=== PATIENT | female | born 1980 | race Caucasian/White ===

== ENCOUNTER 2020-06-23 02:02 | Inpatient (IN) | payer MEDICAID, SELFPAY ==
[~2020-06-23] VITALS: Ht 157.5 cm; Wt 54.4 kg
[2020-06-23 02:08] VITALS: BP_SYST 133
[2020-06-23] MEDS ORDERED: ONDANSETRON HCL 4 MG/2 ML VIAL IVP ONE (02:30)
[2020-06-23] MEDS ORDERED: MORPHINE 4 MG/ML INJ. SYRINGE IVP ONE (02:30)
[2020-06-23] MEDS ORDERED: NACL 0.9% 1,000 ML IV ONE (02:30)
[2020-06-23] MEDS ORDERED: DIPHENHYDRAMINE INJ 50 MG/ML VIAL IVP ONE (02:30)
[2020-06-23 02:55] LABS: BASOPHILS % (AUTO) 0.4 % (0.0-2.0); EOSINOPHILS # (AUTO) 0.2 K/uL (0.0-0.4); EOSINOPHILS % (AUTO) 2.9 % (0.0-4.0); HEMATOCRIT 34.8 % (36-48); HEMOGLOBIN 11.5 g/dL (12.0-16.0); LYMPHOCYTES # (AUTO) 1.7 K/uL (1.0-5.5); LYMPHOCYTES % (AUTO) 20.3 % (20.5-51.5); MEAN CORPUSCULAR HEMOGLOBIN 30 pg (27-31); MEAN CORPUSCULAR HGB CONC 33 % (32-36); MEAN CORPUSCULAR VOLUME 90 fL (79.0-98.0); MONOCYTES # (AUTO) 0.5 K/uL (0.0-1.0); MONOCYTES % (AUTO) 6.3 % (1.7-9.3); NEUTROPHILS # (AUTO) 5.9 K/uL (1.8-7.7); NEUTROPHILS % (AUTO) 70.1 % (40.0-70.0); PLATELET COUNT (AUTO) 276 K/uL (130-430); RED BLOOD CELL COUNT(AUTO) 3.87 MIL/uL (4.2-6.2); RED CELL DISTRIBUTION WIDTH 13.1 % (9.0-15.0); WHITE BLOOD COUNT (AUTO) 8.4 K/uL (4.8-10.8)
[2020-06-23 02:58] LABS: BILIRUBIN,URINE NEGATIVE (NEGATIVE); BLOOD, URINE 3+ (NEGATIVE); CLARITY/URINE CLOUDY (CLEAR); COLOR,URINE YELLOW (YELLOW); GLUCOSE,URINE NEGATIVE (NEGATIVE); KETONES,URINE NEGATIVE (NEGATIVE); LEUKOCYTE ESTERASE ,URINE 2+ (NEGATIVE); NITRITE, URINE POSITIVE (NEGATIVE); PH,URINE 6.5 (5.0-8.0); PROTEIN URINE 2+ (NEGATIVE); UROBILINOGEN,URINE 0.2 (0.2-1.0)
[2020-06-23 03:04] LABS: CALCIUM 8.4 mg/dL (8.4-11.0); CREATININE 0.84 mg/dL (0.55-1.30)
[2020-06-23 03:05] LABS: BACTERIA,URINE MANY /HPF (None Seen); RBC,URINE >100 /HPF (0-3); WBC,URINE >100 /HPF (0-3)
[2020-06-23 03:10] LABS: ALBUMIN 3.2 g/dL (3.4-4.8); TOTAL BILIRUBIN 0.2 mg/dL (0.0-1.0)
[2020-06-23] MEDS ORDERED: cefTRIAXone 1 GM IVPB PREMIX 50 ML IV ONE (03:45)
[2020-06-23] MEDS ORDERED: cefTRIAXone 1 GM VIAL ONE (04:01)
[2020-06-23] MEDS ORDERED: ACETAMINOPHEN 325 MG TABLET PO PRN ×2 (05:00→11:45)
[2020-06-23] MEDS ORDERED: MORPHINE 2 MG/ML INJ. SYRINGE IVP PRN (05:00)
[2020-06-23] MEDS: NACL 0.9% 1,000 ML IV SCH ×3 (05:25→21:14)
[2020-06-23] MEDS ORDERED: PIPERACILLIN/TAZOBACTAM 3.375 GM/VIAL (ZOSYN) IV ONE (05:27)
[2020-06-23] MEDS: PIPERACILLIN/TAZO 3.375 GM in NS 50 ML IV SCH ×4 (05:28→23:53)
[2020-06-23 06:35] VITALS: BP_SYST 112
[2020-06-23 08:02] VITALS: BP_SYST 111
[2020-06-23] MEDS: MORPHINE 4 MG/ML INJ. SYRINGE IVP PRN ×3 (08:02→22:06)
[2020-06-23] MEDS ORDERED: HYDR-4272 PO (09:49)
[2020-06-23] MEDS: ONDANSETRON HCL 4 MG/2 ML VIAL IVP PRN ×2 (10:43→23:53)
[2020-06-23] MEDS ORDERED: BISACODYL 5 MG TABLET.DR (DULCOLAX) PO ONE (11:00)
[2020-06-23] MEDS: DIPHENHYDRAMINE INJ 50 MG/ML VIAL IVP PRN (11:13)
[2020-06-23 11:25] VITALS: BP_SYST 114
[2020-06-23] MEDS ORDERED: HYDROcodone/ACETAMIN 5-325 MG TAB (NORCO/ VICODIN) PO PRN (11:45)
[2020-06-23] MEDS ORDERED: NALOXONE HCL 0.4 MG/ML AMP (NARCAN) IVP PRN (11:45)
[2020-06-23] MEDS ORDERED: MILK OF MAGNESIA 30 ML UDC PO PRN (12:00)
[2020-06-23] MEDS ORDERED: PANTOPRAZOLE SODIUM 40 MG TAB PO ONE (12:00)
[2020-06-23 15:27] VITALS: BP_SYST 118
[2020-06-23 20:00] VITALS: BP_SYST 113; BP_SYST 124
[2020-06-23] MEDS: DOCUSATE SODIUM 250 MG CAPSULE PO SCH (21:08)
[2020-06-24] VITALS: BP_SYST 127
[2020-06-24] MEDS: MORPHINE 4 MG/ML INJ. SYRINGE IVP PRN ×4 (04:53→22:03)
[2020-06-24] MEDS: NACL 0.9% 1,000 ML IV SCH ×2 (04:59→21:00)
[2020-06-24] MEDS: PIPERACILLIN/TAZO 3.375 GM in NS 50 ML IV SCH ×3 (05:00→17:28)
[2020-06-24 06:55] LABS: BASOPHILS % (AUTO) 0.4 % (0.0-2.0); EOSINOPHILS # (AUTO) 0.2 K/uL (0.0-0.4); EOSINOPHILS % (AUTO) 2.5 % (0.0-4.0); HEMATOCRIT 34.3 % (36-48); HEMOGLOBIN 11.2 g/dL (12.0-16.0); LYMPHOCYTES # (AUTO) 1.1 K/uL (1.0-5.5); LYMPHOCYTES % (AUTO) 15.4 % (20.5-51.5); MEAN CORPUSCULAR HEMOGLOBIN 30 pg (27-31); MEAN CORPUSCULAR HGB CONC 33 % (32-36); MEAN CORPUSCULAR VOLUME 91 fL (79.0-98.0); MONOCYTES # (AUTO) 0.3 K/uL (0.0-1.0); MONOCYTES % (AUTO) 4.7 % (1.7-9.3); NEUTROPHILS # (AUTO) 5.4 K/uL (1.8-7.7); PLATELET COUNT (AUTO) 212 K/uL (130-430); RED BLOOD CELL COUNT(AUTO) 3.78 MIL/uL (4.2-6.2); RED CELL DISTRIBUTION WIDTH 13.1 % (9.0-15.0)
[2020-06-24 07:23] LABS: PROTHROMBIN TIME 10.4 SECS (9.5-12.5)
[2020-06-24 07:46] LABS: CALCIUM 7.9 mg/dL (8.4-11.0); CREATININE 0.87 mg/dL (0.55-1.30)
[2020-06-24 07:54] LABS: TOTAL IRON BIND. CAPACITY 214 ug/dL (250-450)
[2020-06-24 08:05] VITALS: BP_SYST 121
[2020-06-24] MEDS ORDERED: BISACODYL 5 MG TABLET.DR (DULCOLAX) PO PRN (09:00)
[2020-06-24] MEDS: PANTOPRAZOLE SODIUM 40 MG TAB PO SCH (09:00)
[2020-06-24] MEDS: DOCUSATE SODIUM 250 MG CAPSULE PO SCH ×2 (09:00→21:59)
[2020-06-24] MEDS: ONDANSETRON HCL 4 MG/2 ML VIAL IVP PRN ×2 (10:57→22:00)
[2020-06-24 11:32] VITALS: BP_SYST 108
[2020-06-24 16:28] VITALS: BP_SYST 103
[2020-06-24] MEDS ORDERED: MORPHINE 4 MG/ML INJ. SYRINGE ONE (17:15)
[2020-06-24] MEDS ORDERED: ONDANSETRON HCL 4 MG/2 ML VIAL ONE ×2 (17:16→21:56)
[2020-06-24 19:00] VITALS: BP_SYST 113
[2020-06-25] VITALS: BP_SYST 110
[2020-06-25] MEDS: PIPERACILLIN/TAZO 3.375 GM in NS 50 ML IV SCH ×3 (00:27→11:25)
[2020-06-25] MEDS: NACL 0.9% 1,000 ML IV SCH ×3 (00:28→23:07)
[2020-06-25] MEDS: MORPHINE 4 MG/ML INJ. SYRINGE IVP PRN ×5 (02:14→20:37)
[2020-06-25] MEDS ORDERED: ONDANSETRON HCL 4 MG/2 ML VIAL ONE ×4 (02:20→15:16)
[2020-06-25] MEDS: ONDANSETRON HCL 4 MG/2 ML VIAL IVP PRN ×4 (02:21→15:19)
[2020-06-25 06:52] LABS: BASOPHILS % (AUTO) 0.5 % (0.0-2.0); EOSINOPHILS # (AUTO) 0.2 K/uL (0.0-0.4); EOSINOPHILS % (AUTO) 3.3 % (0.0-4.0); HEMATOCRIT 32.3 % (36-48); HEMOGLOBIN 10.8 g/dL (12.0-16.0); LYMPHOCYTES # (AUTO) 1.4 K/uL (1.0-5.5); LYMPHOCYTES % (AUTO) 23.1 % (20.5-51.5); MEAN CORPUSCULAR HEMOGLOBIN 30 pg (27-31); MEAN CORPUSCULAR HGB CONC 33 % (32-36); MEAN CORPUSCULAR VOLUME 90 fL (79.0-98.0); MONOCYTES # (AUTO) 0.4 K/uL (0.0-1.0); MONOCYTES % (AUTO) 6.9 % (1.7-9.3); NEUTROPHILS % (AUTO) 66.2 % (40.0-70.0); PLATELET COUNT (AUTO) 212 K/uL (130-430)
[2020-06-25 08:01] VITALS: BP_SYST 114
[2020-06-25] MEDS ORDERED: PANTOPRAZOLE SODIUM 40 MG TAB ONE (08:06)
[2020-06-25] MEDS: DOCUSATE SODIUM 250 MG CAPSULE PO SCH ×2 (08:07→20:42)
[2020-06-25] MEDS: PANTOPRAZOLE SODIUM 40 MG TAB PO SCH (08:07)
[2020-06-25 08:12] LABS: CALCIUM 7.9 mg/dL (8.4-11.0); CREATININE 0.7 mg/dL (0.55-1.30); POTASSIUM 4.1 mmol/L (3.5-5.1)
[2020-06-25 11:23] VITALS: BP_SYST 134
[2020-06-25 15:22] VITALS: BP_SYST 129
[2020-06-25] MEDS: DIPHENHYDRAMINE INJ 50 MG/ML VIAL IVP PRN (18:45)
[2020-06-25 20:44] VITALS: BP_SYST 148
[2020-06-25] MEDS: CEFTAZIDIME 1 GM in D5W 50 ML IV SCH (21:20)
[2020-06-25] MEDS: HYDROcodone/ACETAMIN 5-325 MG TAB (NORCO/ VICODIN) PO PRN (21:48)
[2020-06-26] MEDS: MORPHINE 4 MG/ML INJ. SYRINGE IVP PRN ×5 (02:20→22:36)
[2020-06-26 02:51] VITALS: BP_SYST 137
[2020-06-26] MEDS: HYDROcodone/ACETAMIN 5-325 MG TAB (NORCO/ VICODIN) PO PRN ×2 (04:18→21:56)
[2020-06-26] MEDS: CEFTAZIDIME 1 GM in D5W 50 ML IV SCH ×3 (05:12→21:53)
[2020-06-26 08:42] VITALS: BP_SYST 127
[2020-06-26] MEDS ORDERED: PANTOPRAZOLE SODIUM 40 MG TAB ONE (09:36)
[2020-06-26] MEDS: PANTOPRAZOLE SODIUM 40 MG TAB PO SCH (09:38)
[2020-06-26] MEDS: DOCUSATE SODIUM 250 MG CAPSULE PO SCH ×2 (09:38→20:16)
[2020-06-26 09:48] VITALS: BP_SYST 125
[2020-06-26] MEDS ORDERED: ONDANSETRON HCL 4 MG/2 ML VIAL ONE ×3 (11:22→18:06)
[2020-06-26 11:25] VITALS: BP_SYST 93
[2020-06-26] MEDS: NACL 0.9% 1,000 ML IV SCH ×2 (11:26→22:52)
[2020-06-26] MEDS: ONDANSETRON HCL 4 MG/2 ML VIAL IVP PRN ×2 (11:26→18:07)
[2020-06-26] MEDS: DIPHENHYDRAMINE INJ 50 MG/ML VIAL IVP PRN ×2 (11:35→20:16)
[2020-06-26 15:13] VITALS: BP_SYST 100
[2020-06-26] MEDS ORDERED: MULTIVITAMINS TAB 1 TABLET PO ONE (16:30)
[2020-06-26] MEDS ORDERED: LACTOBACILLUS RHAMNOSUS GG 1 CAP CAPSULE PO ONE (16:30)
[2020-06-26 20:01] VITALS: BP_SYST 141
[2020-06-26] MEDS: LACTOBACILLUS RHAMNOSUS GG 1 CAP CAPSULE PO SCH (20:16)
[2020-06-26] MEDS: MULTIVITAMINS TAB 1 TABLET PO SCH (20:16)
[2020-06-27 00:05] VITALS: BP_SYST 124
[2020-06-27] MEDS: MORPHINE 4 MG/ML INJ. SYRINGE IVP PRN ×4 (03:45→20:07)
[2020-06-27] MEDS ORDERED: ONDANSETRON HCL 4 MG/2 ML VIAL ONE ×2 (03:51→13:14)
[2020-06-27] MEDS: ONDANSETRON HCL 4 MG/2 ML VIAL IVP PRN (03:53)
[2020-06-27 04:00] VITALS: BP_SYST 113
[2020-06-27] MEDS: CEFTAZIDIME 1 GM in D5W 50 ML IV SCH ×2 (05:22→14:45)
[2020-06-27 06:51] LABS: BASOPHILS % (AUTO) 0.6 % (0.0-2.0); EOSINOPHILS # (AUTO) 0.2 K/uL (0.0-0.4); EOSINOPHILS % (AUTO) 3.9 % (0.0-4.0); HEMATOCRIT 33.4 % (36-48); HEMOGLOBIN 11.3 g/dL (12.0-16.0); LYMPHOCYTES # (AUTO) 1.3 K/uL (1.0-5.5); LYMPHOCYTES % (AUTO) 27.2 % (20.5-51.5); MEAN CORPUSCULAR HEMOGLOBIN 30 pg (27-31); MEAN CORPUSCULAR HGB CONC 34 % (32-36); MEAN CORPUSCULAR VOLUME 89 fL (79.0-98.0); MONOCYTES # (AUTO) 0.4 K/uL (0.0-1.0); MONOCYTES % (AUTO) 7.6 % (1.7-9.3); NEUTROPHILS # (AUTO) 2.9 K/uL (1.8-7.7); NEUTROPHILS % (AUTO) 60.7 % (40.0-70.0); PLATELET COUNT (AUTO) 209 K/uL (130-430); RED BLOOD CELL COUNT(AUTO) 3.75 MIL/uL (4.2-6.2); RED CELL DISTRIBUTION WIDTH 12.8 % (9.0-15.0); WHITE BLOOD COUNT (AUTO) 4.8 K/uL (4.8-10.8)
[2020-06-27 07:10] LABS: CALCIUM 8.3 mg/dL (8.4-11.0); CREATININE 0.78 mg/dL (0.55-1.30); POTASSIUM 4.5 mmol/L (3.5-5.1)
[2020-06-27 08:15] VITALS: BP_SYST 120
[2020-06-27] MEDS: DOCUSATE SODIUM 250 MG CAPSULE PO SCH (09:00)
[2020-06-27] MEDS: MULTIVITAMINS TAB 1 TABLET PO SCH (09:00)
[2020-06-27] MEDS: LACTOBACILLUS RHAMNOSUS GG 1 CAP CAPSULE PO SCH (09:00)
[2020-06-27] MEDS: PANTOPRAZOLE SODIUM 40 MG TAB PO SCH (09:00)
[2020-06-27] MEDS: NACL 0.9% 1,000 ML IV SCH (09:59)
[2020-06-27] MEDS ORDERED: LIDOCAINE 1%, 20 ML MDV 0 ML ONE (10:48)
[2020-06-27 12:00] VITALS: BP_SYST 142
[2020-06-27] MEDS ORDERED: LORazepam 2 MG/ML VIAL IVP PRN (12:00)
[2020-06-27] MEDS ORDERED: MIDAZOLAM HCL 5 MG/5 ML VIAL ONE (13:13)
[2020-06-27] MEDS ORDERED: KETAMINE 30 MG/3 ML SYRINGE ONE (13:17)
[2020-06-27] MEDS: DIPHENHYDRAMINE INJ 50 MG/ML VIAL IVP PRN ×2 (15:04→20:05)
[2020-06-27] MEDS ORDERED: KETAMINE 30 MG/3 ML SYRINGE IVP ONE (15:15)
[2020-06-27] MEDS ORDERED: ONDANSETRON HCL 4 MG/2 ML VIAL IVP ONE (15:15)
[2020-06-27] MEDS ORDERED: MIDAZOLAM HCL 2 MG/2 ML VIAL (VERSED) IVP ONE (15:15)
[2020-06-27 16:00] VITALS: BP_SYST 148
[2020-06-27 19:40] VITALS: BP_SYST 125
== END 2020-06-27 21:10 | disposition short-term general hospital (02) | DRG 720 ==
LOC: SED 02:02 → SMU 04:49 → UNDODISIN 06-24 12:07
PROVIDERS: ADMIT Internal Medicine; ATTEND Internal Medicine
DX: A41.9 Sepsis, unspecified organism (principal); N23 Unspecified renal colic; N20.0 Calculus of kidney; K59.00 Constipation, unspecified; D64.9 Anemia, unspecified; N13.6 Pyonephrosis; N12 Tubulo-interstitial nephritis, not specified as acute or chronic; E44.1 Mild protein-calorie malnutrition; F12.90 Cannabis use, unspecified, uncomplicated; Z20.828 Contact with and (suspected) exposure to other viral communicable diseases; I10 Essential (primary) hypertension; Z87.440 Personal history of urinary (tract) infections; Z87.442 Personal history of urinary calculi; Z79.891 Long term (current) use of opiate analgesic; Z88.2 Allergy status to sulfonamides; Z79.1 Long term (current) use of non-steroidal anti-inflammatories (NSAID); Z68.21 Body mass index [BMI] 21.0-21.9, adult
CPT/HCPCS: 36415; 76376; 77012; 80048; 80053; 81000-TC; 83540-TC; 83550-TC; 83605; 84703; 85025; 85610-TC; 85730-TC; 87040-TC; 87086; 96365; 96375; 99285; C1729; J0696; J0713; J1200; J2001; J2060; J2250; J2270; J2405; J2543; J3465; J7030; J7060

== ENCOUNTER 2020-07-04 21:47 | Emergency (ER) | payer MEDICAID, SELFPAY ==
[~2020-07-04] VITALS: Ht 157.5 cm; Wt 63.5 kg
[~2020-07-04 21:47] MED LIST: HYDR-4272 PO
[2020-07-04 22:23] VITALS: BP_SYST 156
--- NOTE | 2020-07-04 22:27 | NUR ---
Patient triaged and placed in waiting room. VSS and patient appears in no acute distress at this time. Accompanied by self, awaiting available bed, and MD notified of need for MSE.
[2020-07-04] MEDS ORDERED: NACL 0.9% 1,000 ML IV ONE (23:15)
--- NOTE | 2020-07-04 23:40 | NUR ---
ER in triage examining patient.
[2020-07-05 00:06] LABS: CALCIUM 9.6 mg/dL (8.4-11.0); CREATININE 0.99 mg/dL (0.55-1.30); POTASSIUM 4.5 mmol/L (3.5-5.1)
[2020-07-05 00:11] LABS: ALBUMIN 3.9 g/dL (3.4-4.8); TOTAL BILIRUBIN 0.2 mg/dL (0.0-1.0)
[2020-07-05 00:19] LABS: INR 0.9 (0.8-1.2)
[2020-07-05 00:22] LABS: BILIRUBIN,URINE NEGATIVE (NEGATIVE); BLOOD, URINE 2+ (NEGATIVE); CLARITY/URINE CLOUDY (CLEAR); COLOR,URINE YELLOW (YELLOW); GLUCOSE,URINE NEGATIVE (NEGATIVE); KETONES,URINE NEGATIVE (NEGATIVE); LEUKOCYTE ESTERASE ,URINE 2+ (NEGATIVE); NITRITE, URINE NEGATIVE (NEGATIVE); PH,URINE 6.5 (5.0-8.0); PROTEIN URINE 1+ (NEGATIVE); UROBILINOGEN,URINE 0.2 (0.2-1.0)
[2020-07-05 00:25] LABS: BASOPHILS % (AUTO) 0.6 % (0.0-2.0); EOSINOPHILS # (AUTO) 0.3 K/uL (0.0-0.4); EOSINOPHILS % (AUTO) 3.1 % (0.0-4.0); HEMATOCRIT 38.3 % (36-48); HEMOGLOBIN 12.9 g/dL (12.0-16.0); LYMPHOCYTES % (AUTO) 23.6 % (20.5-51.5); MEAN CORPUSCULAR HEMOGLOBIN 30 pg (27-31); MEAN CORPUSCULAR HGB CONC 34 % (32-36); MEAN CORPUSCULAR VOLUME 89 fL (79.0-98.0); MONOCYTES # (AUTO) 0.4 K/uL (0.0-1.0); MONOCYTES % (AUTO) 5.1 % (1.7-9.3); NEUTROPHILS # (AUTO) 5.8 K/uL (1.8-7.7); NEUTROPHILS % (AUTO) 67.6 % (40.0-70.0); PLATELET COUNT (AUTO) 344 K/uL (130-430); RED BLOOD CELL COUNT(AUTO) 4.32 MIL/uL (4.2-6.2); RED CELL DISTRIBUTION WIDTH 13.2 % (9.0-15.0); WHITE BLOOD COUNT (AUTO) 8.6 K/uL (4.8-10.8)
--- NOTE | 2020-07-05 00:45 | NUR ---
patient left without being seen
[2020-07-05 00:55] LABS: BACTERIA,URINE MODERATE /HPF (None Seen); RBC,URINE 20-50 /HPF (0-3); WBC,URINE 20-50 /HPF (0-3)
== END 2020-07-05 00:45 | disposition left against medical advice (07) ==
LOC: SED 21:47
DX: T83.032A Leakage of nephrostomy catheter, initial encounter (principal); F12.90 Cannabis use, unspecified, uncomplicated; F17.210 Nicotine dependence, cigarettes, uncomplicated; Z79.899 Other long term (current) drug therapy; Z88.2 Allergy status to sulfonamides
CPT/HCPCS: 36415; 80053; 81000-TC; 83605; 85025; 85610-TC; 85730-TC; 87040-TC; 87086; 93005; 99284

== ENCOUNTER 2020-07-09 14:24 | Emergency (ER) | payer MEDICAID ==
[~2020-07-09] VITALS: Ht 157.5 cm; Wt 63.5 kg
[2020-07-09 14:30] VITALS: BP_SYST 127
--- NOTE | 2020-07-09 14:37 | NUR ---
Patient to ER bed hallway for evaluation. Side rails up.
--- NOTE | 2020-07-09 14:40 | NUR ---
Pt brought by self, A&Ox4, pt presents to ER with L flank pain, pt arrived with nephrostomy tube,afebrile,skin pink and warm , cap refill ,3, VSS, respirations even and unlabored.
--- NOTE | 2020-07-09 15:02 | NUR ---
Dr West evaluating patient at bedside
[2020-07-09] MEDS: ONDANSETRON HCL 4 MG/2 ML VIAL IVP ONE (15:11)
[2020-07-09] MEDS: MORPHINE 2 MG/ML INJ. SYRINGE IVP ONE ×2 (15:11→16:53)
[2020-07-09 15:40] LABS: BILIRUBIN,URINE NEGATIVE (NEGATIVE); BLOOD, URINE 3+ (NEGATIVE); CLARITY/URINE SL CLOUDY (CLEAR); COLOR,URINE YELLOW (YELLOW); GLUCOSE,URINE NEGATIVE (NEGATIVE); KETONES,URINE NEGATIVE (NEGATIVE); LEUKOCYTE ESTERASE ,URINE 3+ (NEGATIVE); NITRITE, URINE NEGATIVE (NEGATIVE); PROTEIN URINE 3+ (NEGATIVE); UROBILINOGEN,URINE 0.2 (0.2-1.0)
[2020-07-09 15:53] LABS: BASOPHILS % (AUTO) 0.6 % (0.0-2.0); EOSINOPHILS # (AUTO) 0.3 K/uL (0.0-0.4); HEMATOCRIT 38.1 % (36-48); HEMOGLOBIN 12.6 g/dL (12.0-16.0); LYMPHOCYTES # (AUTO) 1.9 K/uL (1.0-5.5); LYMPHOCYTES % (AUTO) 25.6 % (20.5-51.5); MEAN CORPUSCULAR HEMOGLOBIN 30 pg (27-31); MEAN CORPUSCULAR HGB CONC 33 % (32-36); MEAN CORPUSCULAR VOLUME 90 fL (79.0-98.0); MONOCYTES # (AUTO) 0.5 K/uL (0.0-1.0); MONOCYTES % (AUTO) 6.8 % (1.7-9.3); NEUTROPHILS # (AUTO) 4.7 K/uL (1.8-7.7); PLATELET COUNT (AUTO) 300 K/uL (130-430); RED BLOOD CELL COUNT(AUTO) 4.23 MIL/uL (4.2-6.2); RED CELL DISTRIBUTION WIDTH 13.1 % (9.0-15.0); WHITE BLOOD COUNT (AUTO) 7.5 K/uL (4.8-10.8)
[2020-07-09] MEDS ORDERED: KETAMINE 30 MG/3 ML SYRINGE ONE (16:05)
[2020-07-09 16:06] LABS: CALCIUM 9.9 mg/dL (8.4-11.0); CREATININE 1.08 mg/dL (0.55-1.30); POTASSIUM 4.2 mmol/L (3.5-5.1)
[2020-07-09 16:11] LABS: ALBUMIN 3.8 g/dL (3.4-4.8); TOTAL BILIRUBIN 0.5 mg/dL (0.0-1.0)
[2020-07-09] MEDS: KETAMINE 30 MG/3 ML SYRINGE 15 MG in NS 100 ML IV ONE (16:30)
[2020-07-09 16:31] LABS: RBC,URINE >100 /HPF (0-3); WBC,URINE >100 /HPF (0-3)
[2020-07-09 16:34] LABS: BACTERIA,URINE MODERATE /HPF (None Seen)
[2020-07-09 16:35] LABS: MUCUS,URINE 2+ /LPF (None Seen); URINE AMORPHOUS PHOSPHATES 2+ /HPF (None Seen)
--- NOTE | 2020-07-09 16:35 | NUR ---
Pt requesting to stop the infusion of Ketamine at this time, states pain is 0/10 at this time.
[2020-07-09] MEDS: cefTRIAXone 1 GM IVPB PREMIX 50 ML IV ONE (17:04)
[2020-07-09 17:14] LABS: PROTHROMBIN TIME 9.9 SECS (9.5-12.5)
--- NOTE | 2020-07-09 17:46 | NUR ---
Pt resting at this time, states pain level 0/10
[2020-07-09] MEDS ORDERED: MORPHINE 2 MG/ML INJ. SYRINGE IVP PRN ×2 (18:00)
[2020-07-09] MEDS ORDERED: ONDANSETRON HCL 4 MG/2 ML VIAL IVP PRN (18:00)
[2020-07-09] MEDS: D5/0.45 NS 1,000 ML IV SCH (18:00)
--- NOTE | 2020-07-09 18:30 | NUR ---
AMA for signed by Dr West and Patient
[2020-07-09 19:06] VITALS: BP_SYST 124
--- NOTE | 2020-07-09 19:09 | NUR ---
Patient does not wish to proceed with medical care recommended by Dr Hirsch. Patient given information related to possible complications, up to and including , which could occur as a result of leaving hospital at this time. Patient verbalizes understanding of risks involved leaving against medical advice. Patient has signed AMA form.
[2020-07-10] MEDS ORDERED: cefTRIAXone 1 GM VIAL IM ONE (09:00)
== END 2020-07-09 19:06 | disposition left against medical advice (07) ==
LOC: SED 14:24
DX: N12 Tubulo-interstitial nephritis, not specified as acute or chronic (principal); Z88.2 Allergy status to sulfonamides; Z87.442 Personal history of urinary calculi
CPT/HCPCS: 36415; 74176; 76376; 80053; 81000; 83605; 84484; 85025; 85610; 85730; 87040; 87086; 93005; 96365; 96375; 99285; J0696; J2270; J2405

== ENCOUNTER 2020-07-13 23:41 | Emergency (ER) | payer MEDICAID ==
[~2020-07-13] VITALS: Ht 157.5 cm; Wt 63.5 kg
[2020-07-14 00:29] VITALS: BP_SYST 150
[2020-07-14 01:12] VITALS: BP_SYST 142
== END 2020-07-14 01:12 | disposition home or self-care (01) ==
LOC: SED 23:41
DX: T83.89XA Other specified complication of genitourinary prosthetic devices, implants and grafts, initial encounter (principal)
CPT/HCPCS: 99281